=== PATIENT | female | born 1985 | race Caucasian/White ===

== ENCOUNTER 2020-04-29 13:42 | Outpatient (CLI) | payer OTHER | END 2020-04-29 13:54 | disposition home or self-care (01) | LOC: MRI 13:42 | PROVIDERS: ATTEND Orthopaedic Surgery | DX: M25.561 Pain in right knee (principal); M25.562 Pain in left knee | CPT/HCPCS: 73718 ==

== ENCOUNTER 2021-10-22 14:42 | Emergency (ER) | payer OTHER ==
[~2021-10-22] VITALS: Ht 160 cm; Wt 70.3 kg
== END 2021-10-22 19:46 | disposition home or self-care (01) ==
LOC: ER 14:42
DX: N20.0 Calculus of kidney (principal); R10.9 Unspecified abdominal pain

== ENCOUNTER 2021-10-25 07:58 | Day surgery (SDC) | payer OTHER ==
[~2021-10-25] VITALS: Ht 160 cm; Wt 72.6 kg
--- NOTE | 2021-10-25 08:04 | NUR ---
SE RECIBE PACIENTE ALERTA Y ORIENTADO EN TIEMPO LUGAR Y PERSONA. REFIERE TENER DOLOR EN EL COSTADO DERECHO DESDE EL JUEVES PASADO, Y EL JAISON LE COMENZO A MOLESTAR EN EL BERT DE HOY. REFIERE QUE SUFRE DE CALCULOS Y QUE ES PACIENTE DEL DR. CRUZ. SE BARBARA SIGNOS VITALES Y SE UBICA PTE.
--- NOTE | 2021-10-25 09:32 | NUR ---
PACIENTE EVALUADA POR DR DALEY QUIEN [place] MEDICO. SE ORIENTA A PACIENTE SOBRE EL MISMO Y REFIERE ENTENDER. SE LE HACE ENTREGA DE ENVASE DE U/A Y SE ESPERA POR ESTUDIO.
--- NOTE | 2021-10-25 14:10 | NUR ---
PT CON ORDEN DE ADMISION PARA BRYSON DE OPERACIONES. SE PREPARA PT PARA SUBIR AL AREA, DR. CRUZ A CARGO DE ESTA ADMISION. PT PRESENTA DOLOR DE STEPHANIE, SE LE ADMINISTRA MEDICAMENTO ORDENADO POR . PT FLORENTIN JENN PERTENENCIAS EN AREA DE BRYSON DE EMERGENCIAS YA QUE CON KWABENA NO HAY FAMILIAR AL MOMENTO.
--- NOTE | 2021-10-25 14:40 | NUR ---
SE ADMINISTRAN MEDICAMENTOS JENAE ORDEN MEDICA ANTES DE SUBIR A PT AL AREA DE OR, TIMOTHY DE ESTOS NO ESTA DISPONIBLE EN FARMACIA Y EL PERSONAL NOTIFICA SOBRE OTRO MEDICAMENTO PARA REEMPLAZAR KAEL, SE LLAMA AL MEDICO PARA CONSULTAR MILAGROS KAEL NO RESPONDE A NINGUNA DE [place], SE LLAMA A BRYSON DE OPERACIONES Y KAEL NO SE ENCUENTRA EN DICHO LUGAR. PACIENTE CON VENOPUNCION PATENTE BAJANDO TIMOTHY DE LOS ANTIBIOTICOS PREESCRITOS POR MD QUIEN VA A REALIZAR OPERACION. SE MANTIENE EN ESPERA POR RESULTADOS DE PRUEBA DE COVID-19 MOLECULAR, Y POR MD PARA CONSULTAR SOBRE MEDICAMENTO NO DISPONIBLE.
[2021-10-25] MEDS ORDERED: LEVOFLOXACIN500 MG PO ×2 (17:38)
[2021-10-25] MEDS ORDERED: ULTRAM50 MG PO ×2 (17:38)
== END 2021-10-25 16:13 | disposition home or self-care (01) ==
LOC: ER 07:58 → O/R 14:43 → SEC-K 14:43 → ER 14:43 → CIR.AMB 14:44 → SEC-K 16:01 → O/R 16:01 → CIR.AMB 16:13 → O/R 22:05
PROVIDERS: ATTEND Surgery
DX: N20.1 Calculus of ureter (principal); Z87.442 Personal history of urinary calculi

== ENCOUNTER 2023-07-12 09:06 | Emergency (ER) | payer OTHER ==
[~2023-07-12] VITALS: Ht 160 cm; Wt 70.3 kg
[~2023-07-12 09:06] MED LIST: LEVOFLOXACIN500 MG PO; ULTRAM50 MG PO
[2023-07-12 09:53] LABS: PH,URINE 6.5 (5.0-8.0); URINE APPEARANCE Clear; URINE BILIRRUBIN Negative (NEGATIVE); URINE BLOOD Negative; URINE COLOR Yellow; URINE GLUCOSE Negative (NEGATIVE); URINE LEUKOCYTE Trace; URINE NITRATE Negative; URINE PROTEIN Negative (NEGATIVE); URINE UROBILINOGEN 0.2 E.U./dl
[2023-07-12 09:54] LABS: URINE BACTERIA 961.2 uL (0.0-1933); URINE RBC 21.4 uL (0.0-20.8); URINE WBC 12.6 uL (0.0-23.2)
[2023-07-12 10:16] LABS: HEMATOCRIT 41.7 % (36.0-45.00); MEAN CELL VOLUME 86.9 fL (80.00-100.00); MEAN CORPUSCULAR HEMOGLOBIN 29.3 pg (27.00-32.0); MEAN CORPUSCULAR HGB CONC 33.7 g/dl (32.0-36.0); PLATELET COUNT 233 K/uL (150-450); RED BLOOD COUNT 4.79 M/uL (4.00-6.00); RED CELL DISTRIBUTION WIDTH 14.5 % (11.5-14.5)
[2023-07-12 10:42] LABS: CALCIUM 9.9 mg/dL (8.5-10.1); CREATININE SERUM 0.86 mg/dL (0.55-1.02); GFR 74.66
[2023-07-12 12:46] LABS: INR 1.03; PARTIAL THROMBOPLASTIN TIME 30.8 SECONDS (22.0-34.0); PROTHROMBIN TIME 10.8 SECONDS (9.0-11.5)
== END 2023-07-12 15:17 | disposition home or self-care (01) ==
LOC: ER 09:06
PROVIDERS: Emergency Medicine
DX: N20.2 Calculus of kidney with calculus of ureter (principal)